=== PATIENT | male | born 1940 | race Caucasian/White ===

== ENCOUNTER → 2016-12-27 | Outpatient (CLI) | payer MEDICARE, BC ==
[~2016-12-27] MED LIST: AMOX TR-K CLV1 EAC1 PO; AMPICILLIN TRI500 MG PO; ASPIRIN EC81 MG PO; ASPIRIN325 MG PO; AUGMENTIN250 MG PO; DEPAKOTE EXTEN500 MG PO; EFFEXOR75 MG PO; LEVOTHROID (S125 MCG PO; LIPITOR20 M1 PO; NEURONTIN400 MG PO; PRINCIPEN 250250 MG PO; SYNTHROID75 MCG PO; TOPROL XL25 MG PO; ULTRAM50 MG PO; ZYLOPRIM100 MG PO
== END | disposition disaster alternative care site (69) ==
LOC: GRAD 13:37
DX: N13.5 Crossing vessel and stricture of ureter without hydronephrosis (principal)
CPT/HCPCS: C1729; C1769; J7030

== ENCOUNTER → 2017-02-04 | Outpatient (CLI) | payer MEDICARE, BC | END | disposition disaster alternative care site (69) | LOC: GOPD 11:30 | PROC: 0T25X0Z Change Drainage Device in Kidney, External Approach (ICD-10-PCS; principal; 2017-02-04) | DX: N13.5 Crossing vessel and stricture of ureter without hydronephrosis (principal) | CPT/HCPCS: C1729; C1769; J7030 ==

== ENCOUNTER → 2017-04-25 | Outpatient (CLI) | payer MEDICARE, BC | END | disposition disaster alternative care site (69) | LOC: GOPD 04-18 → GRAD 13:39 → GOPD 14:00 | PROC: 0T25X0Z Change Drainage Device in Kidney, External Approach (ICD-10-PCS; principal; 2017-04-25) | DX: Z43.6 Encounter for attention to other artificial openings of urinary tract (principal); Z79.82 Long term (current) use of aspirin; Z79.899 Other long term (current) drug therapy | CPT/HCPCS: C1729; C1769; J7030 ==